=== PATIENT | male | born 1970 | race Caucasian/White ===

== ENCOUNTER 2018-09-27 00:22 | Observation (INO) ==
[2018-09-27] MEDS ORDERED: Naloxone 0.4 MG/ML INJ IVP PRN (04:48)
[2018-09-27] MEDS ORDERED: *HR* Heparin 5,000 UNIT/ML VIAL IVP PRN ×2 (04:51)
--- NOTE | 2018-09-27 05:12 | Internal Med History&Physical ---
Date of Encounter: 09/27/18 Time of Encounter: 04:00 Internal Medicine - H&P: HPI Chief complaint: PE Admitted From: Hospital to Hospital Transfer Plans for Post Hospital Care: Home History of present illness: Mr. Ramires is a 48 year old male with past medical history significant for kidney stones who presents as hospital transfer from [facility] where he presented for complaints of mid right-sided back pain radiating around to his right chest. Pain came on gradually and was described as sharp and rated at 10 out of 10 when at its worst. Took Tylenol at home without much relief. Pain was also associated with shortness of breath. Patient has history of kidney stones around 5-6 years ago and states this pain was different and also located higher than what he had experienced previously. Patient denies any other past medical history and does not take any daily medications. Patient also denies any recent immobilization, surgery, or long distance travel. Also denies any previous history of DVT or PE. Pain and shortness of breath remains resolved at this time. Currently denies any headache, chest pain, shortness of breath, abdominal pain, bowel or bladder changes. Sending ER reported EKG with no ST elevations appreciated and right bundle branch pattern noted. Review of previous EKGs also shows chronic right bundle branch block. Sending ER also obtained CT of the chest which showed right lower lobe probably bilateral upper lobe pulmonary emboli, right lower lobe pulmonary infarct, groundglass opacity and some interlobular septal thickening recommending correlation for underlying edema. They also obtained CT of the abdomen which showed fatty infiltration of the liver, bilateral nephrolithiasis, and moderate umbilical hernia containing only fat. Sending ER also obtained a CBC, PT/INR, BMP, and UA which were all unremarkable. Patient was started on a heparin drip and transferred to [facility]. Patient denies following with any providers regularly. Reports he recently had a sinus infection around a week ago but denies any current symptoms. Denies any alcohol, tobacco, or drug use. Past Med Surg Social Fam HX - Past Medical History Medical history: kidney stones Psychiatric history: no psych history - Past Surgical History Surgical History: no surgical history - Social History Smoking Status: Unknown if ever smoked Smokeless Tobacco Status: No Alcohol use: none Drug use: none - Family History Mother Hx Family Cancer: Yes Father Hx Family Cardiac Disorders: Yes Internal Medicine - H&P: Meds No Known Home Drugs 09/26/18 [History] Allergy/AdvReac Type Severity Reaction Status Date / Time No Known Allergies Allergy Verified 04/22/15 13:14 All Systems PM: A 10-system review of systems was performed and is negative for pertinent fin dings except as documented above in the HPI. - Constitutional Vitals: Temp Pulse Resp BP Pulse Ox 97.4 F L 74 18 177/103 94 09/27/18 01:56 09/27/18 01:56 09/27/18 01:56 09/27/18 01:56 09/27/18 01:56 Exam: General: Alert and oriented. Skin:Normal color, no rash, no lesions. HEENT:Pupils equal, round and reactive. Cardiovascular:Heart sounds distant, no rubs, murmurs or gallops. No JVD. Pulse regular. Lungs:Normal breath sounds, no wheezes or crackles. Abdomen:Soft, non-tender, no rigidity. Extremities:No deformity, no edema or tenderness, no joint swelling or clubbing. Neurological:Normal cognition and motor skills. Pulses:Carotid and radial pulses normal +2. Rest of the physical exam is non contributory. - Assessment and Plan (1) Pulmonary embolism and infarction Current Visit: No Status: Acute Assessment and plan: CT of chest at sending facility shows right lower lobe and probably bilateral upper lobe pulmonary emboli, right lower lobe pulmonary infarct, groundglass opa city and some interlobular septal thickening recommending correlation for underlying edema. Heparin drip started at sending facility, will continue same. We will need transitioned to oral anticoagulation. (2) Back pain Current Visit: Yes Status: Acute Assessment and plan: Complained of mid right sided back pain radiating around to his chest currently resolved. Likely secondary to pulmonary emboli. Plan as stated above. Qualifiers: Qualified Code(s): M54.9 - Dorsalgia, unspecified (3) Nephrolithiasis Current Visit: Yes Status: Acute Assessment and plan: CT of the abdomen and pelvis showed few bilateral nonobstructing renal pelvic calculi measuring up to 5 mm on the right with no hydronephrosis or shadowing renal pelvic stones noted. Asymptomatic at this time. Encourage oral hydration. (4) Fatty infiltration of liver Current Visit: Yes Status: Acute Assessment and plan: CT of the abdomen and pelvis showed fatty infiltration of the liver. Labs ordered. (5) Elevated blood pressure reading Current Visit: Yes Status: Acute Assessment and plan: Blood pressures have been elevated since arrival. No history of hypertension. Will start PRN Hydralazine. (6) DVT prophylaxis Current Visit: Yes Status: Acute Assessment and plan: Heparin drip. - Time Spent With Patient Total time spent is greater than 50% in coordination of care (as documented) at patient's floor/unit and/or counseling patient:
[2018-09-27] MEDS: Heparin 25,000 UNIT/250 ML D5W 25,000 UNIT/250 ML IV.SOLN IVC SCH ×2 (05:24→19:46)
--- NOTE | 2018-09-27 08:27 | Event Note ---
Date of Encounter: 09/27/18 Time of Encounter: 07:27 Patient admitted overnight. Developed right lower lobe and bilateral upper lobe PE with right lower lobe pulmonary infarct. Started on heparin drip. Appears to be unprovoked. We will apprise check Eliquis however patient without insurance without to use Coumadin with bridging with heparin. Patient saturating well on room air complaints of right-sided chest pain. Otherwise unremarkable exam.
[2018-09-27] MEDS ORDERED: Warfarin perPT PO PRN (18:00)
[2018-09-27] MEDS ORDERED: *HR* Warfarin 5 MG TABLET PO ONE (18:00)
[2018-09-28 05:12] LABS: Basophils % 0.5 %; Eosinophils # 0.2 K/mcL (0.0-0.6); Eosinophils % 2.4 %; Hemoglobin 15.8 g/dL (12.9-16.9); Immature Granulocytes % 0.6 % (0-4); Lymphocytes # 2.8 K/mcL (0.6-4.6); Lymphocytes % 33.3 %; Mean Corpuscular HGB Conc 33.6 g/dL (31.6-35.5); Mean Corpuscular Hemoglobin 32.1 pg (28.0-33.3); Mean Corpuscular Volume 95.5 fL (83.0-100.0); Mean Platelet Volume 9.8 fL (9.4-12.4); Monocytes # 0.7 K/mcL (0.0-1.3); Monocytes % 8.2 %; Neutrophils # 4.6 K/mcL (1.6-8.9); Platelet Count 217 K/mcL (140-400); Red Blood Count 4.92 M/mcL (4.19-5.50); Red Cell Distribution Width 13.1 % (11.5-14.5); White Blood Count 8.4 K/mcL (4.3-11.1)
[2018-09-28 05:22] LABS: Alanine Aminotransferase 21 Units/L (7-52); Albumin 3.9 g/dL (3.5-5.7); Albumin/Globulin Ratio 1.2 (1.1-2.2); Alkaline Phosphatase 98 Units/L (34-104); Aspartate Amino Transferase 17 Units/L (13-39); BUN/Creatinine Ratio 10 (6-26); Bilirubin,Total 0.4 mg/dL (0.3-1.0); Blood Urea Nitrogen 11 mg/dL (6-20); Calcium 9.4 mg/dL (8.6-10.3); Carbon Dioxide 25 mEq/L (23-29); Chloride 106 mEq/L (98-107); Chol/HDL Ratio 4.7 (0-4.9); Globulin 3.2 g/dL (2.4-3.5); Glucose 113 mg/dL (70-105); Osmolality,Calculated 286 (280-300); Potassium 3.7 mEq/L (3.5-5.1); Prothrombin Time 10.7 Seconds (9.4-12.1); Sodium 138 mEq/L (136-145); Total Protein 7.1 g/dL (6.4-8.9); eGFR For African Americans > 60 (> 60); eGFR For Non-African Americans > 60 (> 60)
[2018-09-28] MEDS: Heparin 25,000 UNIT/250 ML D5W 25,000 UNIT/250 ML IV.SOLN IVC SCH (09:58)
--- NOTE | 2018-09-28 11:06 | Internal Med Progress Note ---
Hospitalist Progress Note - Encounter Date of Encounter: 09/28/18 Time of Encounter: 08:00 - Subjective Interval History: No acute events overnight, denies any chest pain, hemoptysis, cough. Fever/chills. - Exam Vitals: Temp Pulse Resp BP Pulse Ox 98.1 F 7 16 160/110 94 09/28/18 07:21 09/28/18 07:21 09/28/18 07:21 09/28/18 07:21 09/28/18 07:21 Exam: General: Alert and oriented, not in acute distress. Obese male Cardiovascular:Normal S1 & S2, No JVD. Pulse regular. Lungs: clear to auscultation, no wheezes/rales Abdomen:Soft, non-tender, no rigidity. Extremities:No deformity or swelling Neurological:Normal cognition and motor skills. Non-focal - Assessment and Plan (1) Pulmonary embolism and infarction Current Visit: Yes Status: Acute Assessment and Plan: Unprovoked, on heparin drip with Coumadin Patient is not tachycardic or hypoxic. INR 1.0 today discussed with SW regarding the possibility to discharge with lovenox bridging - > unable to afford with lack of insurance will continue both hep gtt and Coumadin until INR therapeutic (2) Hypertension Current Visit: Yes Status: Chronic Assessment and Plan: Patient likely has underlying hypertension that was not treated Will start Norvasc 5 mg (3) Nephrolithiasis Current Visit: No Status: Chronic (4) Fatty infiltration of liver Current Visit: No Status: Chronic (5) Back pain Current Visit: No Status: Chronic (6) DVT prophylaxis Current Visit: Yes Status: Acute Assessment and Plan: hep gtt - Time Spent with Patient Total time spent is greater than 50% in coordination of care (as documented) at patient's floor/unit and/or counseling patient: 25 - 35 minutes Plan of Care Discussed with: patient (discussed with SW/CM regarding disposition plan) Internal Medicine: Result - Labs CBC & Chem 7: 09/28/18 04:33 09/28/18 04:33 Labs: Short CBC 09/28/18 Range/Units 04:33 WBC 8.4 (4.3-11.1) K/mcL Hgb 15.8 (12.9-16.9) g/dL Hct 47.0 (37.5-50.1) % Plt Count 217 (140-400) K/mcL Neutrophils # 4.6 (1.6-8.9) K/mcL BMP 09/28/18 04:33 Sodium 138 Potassium 3.7 Chloride 106 Carbon Dioxide 25 BUN 11 Creatinine 1.05 Glucose 113 H Calcium 9.4 Liver Function 09/28/18 Range/Units 04:33 Total Bilirubin 0.4 (0.3-1.0) mg/dL AST 17 (13-39) Units/L ALT 21 (7-52) Units/L Alkaline Phosphatase 98 (34-104) Units/L Albumin 3.9 (3.5-5.7) g/dL - ABG Interpretation ABG results: PT/INR, D-dimer PT 10.7 Seconds (9.4-12.1) 09/28/18 04:33 Consult Discharge Plan - Plan Referrals: NONE,PCP [Primary Care Provider] - (2) Hypertension Qualifiers: Hypertension type: essential hypertension Qualified Code(s): I10 - Essential (primary) hypertension (5) Back pain Qualifiers: Qualified Code(s): M54.9 - Dorsalgia, unspecified
[2018-09-28] MEDS: amLODIPine 5 MG TABLET PO SCH (11:49)
[2018-09-28] MEDS ORDERED: *HR* Warfarin 5 MG TABLET PO ONE (18:00)
[2018-09-29] MEDS: Heparin 25,000 UNIT/250 ML D5W 25,000 UNIT/250 ML IV.SOLN IVC SCH ×2 (00:45→13:27)
[2018-09-29 03:48] LABS: Prothrombin Time 11.4 Seconds (9.4-12.1)
[2018-09-29] MEDS: amLODIPine 5 MG TABLET PO SCH (07:57)
--- NOTE | 2018-09-29 10:18 | Internal Med Progress Note ---
Hospitalist Progress Note - Encounter Date of Encounter: 09/29/18 Time of Encounter: 08:00 - Subjective Interval History: No acute events overnight. Denies any chest pain, cough, hemoptysis, or nausea/vomiting. - Exam Vitals: Temp Pulse Resp BP Pulse Ox 98.4 F 64 16 168/98 97 09/29/18 08:27 09/29/18 08:27 09/29/18 08:27 09/29/18 08:27 09/29/18 08:27 Exam: General: Alert and oriented, not in acute distress. Obese male Cardiovascular:Normal S1 & S2, No JVD. Pulse regular. Lungs: clear to auscultation, no wheezes/rales Abdomen:Soft, non-tender, no rigidity. Extremities:No deformity or swelling Neurological:Normal cognition and motor skills. Non-focal - Assessment and Plan (1) Pulmonary embolism and infarction Current Visit: Yes Status: Acute Assessment and Plan: Unprovoked, on heparin drip with Coumadin Patient is not tachycardic or hypoxic. INR 1.0 - 1.0 discussed with SW regarding the possibility to discharge with lovenox bridging - > unable to afford due to lack of insurance will continue both hep gtt and Coumadin until INR therapeutic (2) Hypertension Current Visit: Yes Status: Chronic Assessment and Plan: Patient likely has underlying hypertension that was not treated Norvasc 5 mg QD started yesterday if continues to be elevated, will add HCTZ (3) Nephrolithiasis Current Visit: No Status: Chronic (4) Fatty infiltration of liver Current Visit: No Status: Chronic (5) Back pain Current Visit: No Status: Chronic (6) DVT prophylaxis Current Visit: Yes Status: Acute Assessment and Plan: hep gtt - Time Spent with Patient Total time spent is greater than 50% in coordination of care (as documented) at patient's floor/unit and/or counseling patient: Plan of Care Discussed with: patient Internal Medicine: Result - Labs CBC & Chem 7: 09/28/18 04:33 09/28/18 04:33 - ABG Interpretation ABG results: PT/INR, D-dimer PT 11.4 Seconds (9.4-12.1) 09/29/18 02:24 Consult Discharge Plan - Plan Referrals: NONE,PCP [Primary Care Provider] - (2) Hypertension Qualifiers: Hypertension type: essential hypertension Qualified Code(s): I10 - Essential (primary) hypertension (5) Back pain Qualifiers: Qualified Code(s): M54.9 - Dorsalgia, unspecified
[2018-09-29] MEDS ORDERED: *HR* Warfarin 10 MG TABLET PO ONE (18:00)
[2018-09-30] MEDS: Heparin 25,000 UNIT/250 ML D5W 25,000 UNIT/250 ML IV.SOLN IVC SCH (03:16)
[2018-09-30 03:26] LABS: INR 1.1; Prothrombin Time 12.9 Seconds (9.4-12.1)
[2018-09-30] MEDS: amLODIPine 5 MG TABLET PO SCH (08:57)
--- NOTE | 2018-09-30 11:19 | Internal Med Progress Note ---
Hospitalist Progress Note - Encounter Date of Encounter: 09/30/18 Time of Encounter: 09:00 - Subjective Interval History: No acute events overnight. No chest pain, cough, hemoptysis, or leg swelling/pain - Exam Vitals: Temp Pulse Resp BP Pulse Ox 98.1 F 70 16 142/80 97 09/30/18 07:34 09/30/18 09:07 09/30/18 07:34 09/30/18 09:07 09/30/18 05:36 Exam: General: Alert and oriented, not in acute distress. Obese male Cardiovascular:Normal S1 & S2, No JVD. Pulse regular. Lungs: clear to auscultation, no wheezes/rales Abdomen:Soft, non-tender, no rigidity. Extremities:No deformity or swelling Neurological:Normal cognition and motor skills. Non-focal - Assessment and Plan (1) Pulmonary embolism and infarction Current Visit: Yes Status: Acute Assessment and Plan: Unprovoked, on heparin drip with Coumadin Patient is not tachycardic or hypoxic. INR 1.0 - 1.0 - 1.1 discussed with SW regarding the possibility to discharge with lovenox bridging - > unable to afford due to lack of insurance will continue both hep gtt and Coumadin until INR therapeutic (2) Hypertension Current Visit: Yes Status: Chronic Assessment and Plan: Patient likely has underlying hypertension that was not treated on Norvasc 5 mg QD (3) Nephrolithiasis Current Visit: No Status: Chronic (4) Fatty infiltration of liver Current Visit: No Status: Chronic (5) Back pain Current Visit: No Status: Chronic (6) DVT prophylaxis Current Visit: Yes Status: Acute Assessment and Plan: hep gtt - Time Spent with Patient Total time spent is greater than 50% in coordination of care (as documented) at patient's floor/unit and/or counseling patient: less than 15 minutes Plan of Care Discussed with: patient Internal Medicine: Result - Labs CBC & Chem 7: 09/28/18 04:33 09/28/18 04:33 - ABG Interpretation ABG results: PT/INR, D-dimer PT 12.9 Seconds (9.4-12.1) H 09/30/18 02:00 Consult Discharge Plan - Plan Referrals: NONE,PCP [Primary Care Provider] - Prescriptions: Enoxaparin [Lovenox] 120 mg SQ Q12HR #6 syr (2) Hypertension Qualifiers: Hypertension type: essential hypertension Qualified Code(s): I10 - Essential (primary) hypertension (5) Back pain Qualifiers: Qualified Code(s): M54.9 - Dorsalgia, unspecified
--- NOTE | 2018-09-30 15:01 | Discharge Summary ---
- NOTES TO OUTPATIENT PROVIDER Notes to Outpatient Provider: Follow-up with anticoagulation clinic on 10/03 for PT/INR. Continue lovenox and Coumadin till then. Follow up with Hematology as outpatient. Orders not resulted at time of discharge: Pending orders 09/30/18 17:12 Heparin anti-factor XA UFH [COAG] Timed 10/01/18 04:00 Basic Metabolic Panel AM 0400 Complete Blood Count [HEME] AM 0400 Prothrombin Time INR [COAG] AM 0400 Date of Encounter: 09/30/18 Time of Encounter: 09:00 - Discharge Diagnosis (1) Pulmonary embolism and infarction Priority: Primary Status: Acute (2) Hypertension Priority: Secondary Status: Chronic Qualifiers: Hypertension type: essential hypertension Qualified Code(s): I10 - Essential (primary) hypertension (3) Nephrolithiasis Priority: Secondary Status: Chronic (4) Fatty infiltration of liver Priority: Secondary Status: Chronic (5) Back pain Priority: Secondary Status: Chronic Qualifiers: Qualified Code(s): M54.9 - Dorsalgia, unspecified (6) DVT prophylaxis Priority: Secondary Status: Acute Hospital course: Mr. Ramires is a 48 year old male with morbid obesity and hypertension who was admitted for unprovoked PE with R lower lobe infarct. Due to the lack of insurance, he was being treated inpatient with hep gtt and Coumadin. As he is able to afford a short course of lovenox, he will be discharged on Coumadin + lovenox bridging with PT/INR to be drawn on 10/03. IT was emphasized that he will need to bridge for at least 24 hours after INR becomes therapeutic in 2-3 range. Outpatient follow up with hematology was arranged and Norvasc 5mg QD was started for HTN. Discharge discussed with: patient, family, nurse - Time Spent with Patient Total time spent providing and/or coordinating discharge services: 33 mins - Discharge Medications Prescriptions: New Enoxaparin [Lovenox] 120 mg SQ Q12HR #6 syr Warfarin [Coumadin] 5 mg PO 1800 #30 tablet amLODIPine [Norvasc] 5 mg PO DAILY #30 tablet Home Medications: Enoxaparin [Lovenox] 120 mg SQ Q12HR #6 syr 09/30/18 [Rx] Warfarin [Coumadin] 5 mg PO 1800 #30 tablet 09/30/18 [Rx] amLODIPine [Norvasc] 5 mg PO DAILY #30 tablet 09/30/18 [Rx] Allergies/Adverse Reactions: Allergy/AdvReac Type Severity Reaction Status Date / Time No Known Allergies Allergy Verified 09/27/18 21:20 Date of admission: 09/27/18 01:44 Primary care physician: PCP NONE - Constitutional Vitals: Temp Pulse Resp BP Pulse Ox 98.1 F 63 16 136/82 97 09/30/18 07:34 09/30/18 11:43 09/30/18 11:43 09/30/18 11:43 09/30/18 05:36 Exam: General: Alert and oriented, not in acute distress. Obese male Cardiovascular:Normal S1 & S2, No JVD. Pulse regular. Lungs: clear to auscultation, no wheezes/rales Abdomen:Soft, non-tender, no rigidity. Extremities:No deformity or swelling Neurological:Normal cognition and motor skills. Non-focal - Patient Status Disposition: Home, Self-Care Condition: Good Functional capacity at discharge: independent ambulation Overall status at discharge: patient is progressing back to baseline - Discharge Instructions Instructions: Enoxaparin (Injection), Pulmonary Embolism (DC), Chronic Hypertension (DC) Follow Up With: Donna Flroes CNP [Advanced Practice Nurse] - 10/06/18 8:30 am () Finn Ramirez MD [Partnered Physician] - - Diet and Activity Activity: resume usual activities as tolerated Diet: low salt diet
[2018-09-30] MEDS ORDERED: *HR* Enoxaparin 120 MG/0.8 ML SYRINGE SQ ONE (15:05)
[2018-09-30 16:03] VITALS: BP 159/97
[2018-09-30] MEDS ORDERED: *HR* Warfarin 10 MG TABLET PO ONE (18:00)
== END 2018-09-30 18:07 | disposition home or self-care (01) ==
LOC: 2NENU → SUATTDRO 01:44
PROVIDERS: ADMIT Internal Medicine; ATTEND Internal Medicine